=== PATIENT | female | born 1945 | race Hispanic/Latino ===

== ENCOUNTER 2018-06-26 06:06 | Inpatient (IN) | payer MEDICARE ==
[2018-06-26 06:31] VITALS: O2SAT 96
--- NOTE | 2018-06-26 06:32 | ED PDOC ---
Psych Transfer Clearance - Clearance Statement Clearance Statement: Reviewed vital signs, lab results and transfer papers. Patient clinically stable for psychiatric admission.
[2018-06-26] MEDS ORDERED: Alum-Mag Hydrox-Simethicone Susp (30 mL) PO PRN (07:57)
[2018-06-26] MEDS ORDERED: Bismuth Subsalicylate 262 mg/15 ml Sus (240 ml) PO PRN (07:57)
[2018-06-26] MEDS ORDERED: Magnesium Hydroxide Susp 30 ml UD PO PRN (07:57)
[2018-06-26 09:32] VITALS: BMI 24.8
[2018-06-26] MEDS ORDERED: Patient's Own Med (Omeprazole [Omeprazole] 40 MG) PO SCH (09:45)
--- NOTE | 2018-06-26 10:38 | PCM.BM ---
<Gretchen Camp - Last Filed: 06/26/18 10:35> Treatment Plan Problems - Problems identified on initial assessmt Suicidal Ideation Date Initiated: 06/26/18 Time Initiated: 10:36 Assessment reference: HP, NA Status: Active Hopelessness/Helplessness Date Initiated: 06/26/18 Time Initiated: 10:39 Assessment reference: HP, NA Status: Active Social Isolation Date Initiated: 06/26/18 Time Initiated: 10:40 Assessment reference: HP, NA Status: Active Problem 4 Date Initiated: 06/26/18 Time Initiated: 10:42 Assessment reference: HP, NA Status: Active Treatment assets and liabiliti Patient Assests: adapts well, cooperative, motivated Patient Liabilities: live alone, medical problems - Milieu Protocol Maintain good personal hygiene: daily Encourage regular showers, daily Remind patient to perform daily oral care, daily Assist patient to perform ADL's Conduct patient checks and document Observation sheet: Q15 minutes Maintain personal safety: every shift Educate patient to report safety concerns to staff, every shift Monitor environment for contraband/sharps Medication safety: Monitor for expected outcome, potential side effects: every shift, Assess barriers to learning: every shift, Assess readiness for medication education: every shift <Lyssa Granger - Last Filed: 06/27/18 12:00> - Diagnosis (1) Major depressive disorder Status: Acute Interventions: Medication management, Individual and group therapy, Psychoeducation 06/27/18 12:00 <Jessie Santos - Last Filed: 06/28/18 15:19> Family Contact Family contact: Patient agrees to contact, Family has been contacted by patient, Telephone contact initiated by staff Family contact name: Abel Nelson - son Family contacted how many times per week?: 1 Family contact comment: [phone] - Outside Agency [facility] Agency contact number: - Goals for Treatment Patient goals for treatment: Pt will overall improve mood. Pt will be free of suicidal ideation. Pt will develop strategies for thought distraction when ruminating about the past. Pt will manage physical healthcare conditions and cope with related stress. Discharge/Continuing Care - Education Needs Education Needs: Family Medication, Family Diagnosis/Disease Process, Family Coping Skills, Family Community resources, Family Activities of Daily Living, Family Nutrition, Family Health Practices/Safety, Family Personal Hygiene/Grooming, Patient Medication, Patient Diagnosis/Disease Process, Patient Coping Skills, Patient Community resources, Patient Activities of Daily Living, Patient Nutrition, Patient Health Practices/Safety, Patient Personal Hygiene/Grooming - Discharge Discharge Criteria: Tolerates medication w/o severe side effects, Free of Suicidal thoughts, Normal sleep pattern, Ability to care for self, Reduction of target symptoms Discharge to:: Home - Additional Comments 06/28/18 15:11 Pt seen and discussed in team meeting. Reason for hospitalization reviewed and discussed. Pt was a transfer from [facility]. Pt reported feeling worsened depression since 02/2018. Pt reported suicidal ideation prior to ED arrival. Pt reported that her plan was to overdose on medications that she has at home. Pt reported decline in physical ability, more so on her right shoulder secondary to the falls he sustained in 07/2017 and the surgery on 02/2018. Pt reported that she has been isolating herself. Pt reported feeling hopeless and helpless. Pt reported feeling "terrible. I'm tired, very depressed, and weak." Pt described her depression as a "heavy wet blanket." Pt reported that she feels as if she lost her identity. Pt stated 'I used to be chirpy and vibrant." Pt reported in the past she was always very well dressed, nails done, and hair done. Pt reported she has not been able to do any of that since the fall. Pt observed to have her nails well manicured. Pt's social and medical issues reviewed and discussed. Pt lives alone and her son resides in [place]. Pt's me dications reviewed. Pt's tx plan reviewed and discussed. Pt verbalized agreement. Assisted Living Facility vs. [facility] reviewed with pt and declined. Home [facility] Services reviewed and declined. Pt appears to be help rejecting at thsi time. Pt provided radio news writer with written consent to contact her son, Abel ([phone]). SW to continue to follow case. - Treatment Team Participation Discussed with Family/SO: No Was Patient/Family/SO present at Treatment Team Meeting: Yes
[2018-06-26] MEDS: Levothyroxine 88 MCG TAB PO SCH (11:43)
--- NOTE | 2018-06-26 12:28 | CP.PCM.CON ---
History of Present Illness - History of Present Illness History of Present Illness: 72 yo female with history of DM2 and HTN admitted to psyche unit because of worsening depression. Review of Systems - Review of Systems All systems: reviewed and no additional remarkable complaints except (aside from those mentioned above, 12 point system review were negative by me) Past Patient History - Tetanus Immunizations Tetanus Immunization: Unknown - Past Social History Smoking Status: Light Smoker < 10 Cigarettes Daily Chewing Tobacco Use: No Cigar Use: No Alcohol: None Drugs: Denies - CARDIAC Hx Hypertension: Yes - PULMONARY Hx Respiratory Disorders: No - NEUROLOGICAL Hx Neurological Disorder: No - HEENT Hx HEENT Problems: No - RENAL Hx Chronic Kidney Disease: No - ENDOCRINE/METABOLIC Hx Endocrine Disorders: Yes Hx Diabetes Mellitus Type 2: Yes Hx Hypothyroidism: Yes (10 years ago) - HEMATOLOGICAL/ONCOLOGICAL Hx Blood Disorders: No - INTEGUMENTARY Hx Dermatological Problems: No - MUSCULOSKELETAL/RHEUMATOLOGICAL Hx Arthritis: Yes Hx Fractures: Yes (Rt shoulder-03/02) - GASTROINTESTINAL Hx Gastrointestinal Disorders: No - GENITOURINARY/GYNECOLOGICAL Hx Genitourinary Disorders: No - PSYCHIATRIC Hx Depression: Yes Hx Emotional Abuse: No Hx Physical Abuse: No Hx Sexual Abuse: No Hx Substance Use: No - SURGICAL HISTORY Hx Surgeries: Yes Hx Musculoskeletal Surgery: Yes Hx Orthopedic Surgery: Yes (-bilateral knee surgery-2009) - ANESTHESIA Hx Anesthesia: Yes Meds Allergies/Adverse Reactions: Allergies Allergy/AdvReac Type Severity Reaction Status Date / Time No Known Allergies Allergy Verified 06/26/18 06:25 - Medications Medications: Current Medications Acetaminophen (Tylenol 325mg Tab) 650 mg PO Q4 PRN PRN Reason: Pain, moderate (4-7) Al Hydrox/Mg Hydrox/Simethicone (Maalox Plus 30 Ml) 30 ml PO Q4 PRN PRN Reason: Dyspepsia Atorvastatin Calcium (Lipitor) 20 mg PO HS [facility] Bismuth Subsalicylate (Pepto-Bismol) 524 mg PO Q4 PRN PRN Reason: Diarrhea Carvedilol (Coreg) 3.125 mg PO BID [facility] Enalapril Maleate (Vasotec) 5 mg PO DAILY [facility] Last Admin: 06/26/18 11:44 Dose: 5 mg Gabapentin (Neurontin) 400 mg PO TID [facility] Home Med (Ropinirole [Requip]) 1 mg PO HS [facility] Hydrochlorothiazide (Hydrodiuril) 25 mg PO DAILY [facility] Levothyroxine Sodium (Synthroid) 88 mcg PO 0630 [facility] Last Admin: 06/26/18 11:43 Dose: 88 mcg Lorazepam (Ativan) 0.5 mg PO HS PRN PRN Reason: Insomnia Stop: 07/10/18 07:58 Lorazepam (Ativan) 0.5 mg PO Q6 PRN PRN Reason: Anixety/Agitation Stop: 07/10/18 07:58 Magnesium Hydroxide (Milk Of Magnesia) 30 ml PO HS PRN PRN Reason: Constipation Metformin HCl (Glucophage) 500 mg PO BID [facility] Last Admin: 06/26/18 11:43 Dose: 500 mg Pantoprazole Sodium (Protonix Ec Tab) 40 mg PO DAILY [facility] Primidone (Mysoline) 50 mg PO DAILY [facility] Valsartan (Diovan) 160 mg PO DAILY [facility] Physical Exam - Constitutional Appears: No Acute Distress - Head Exam Head Exam: ATRAUMATIC - Eye Exam Eye Exam: absent: Scleral icterus - ENT Exam ENT Exam: Mucous Membranes Moist - Neck Exam Neck exam: Negative for: Meningismus - Respiratory Exam Respiratory Exam: absent: Rales, Rhonchi, Wheezes, Respiratory Distress - Cardiovascular Exam Cardiovascular Exam: REGULAR RHYTHM, +S1, +S2 - GI/Abdominal Exam GI & Abdominal Exam: Soft. absent: Tenderness - Rectal Exam Rectal Exam: Deferred - Extremities Exam Extremities exam: Negative for: pedal edema - Back Exam Back exam: NORMAL INSPECTION - Neurological Exam Neurological exam: Alert, Oriented x3 - Psychiatric Exam Psychiatric exam: Normal Affect - Skin Skin Exam: Dry, Intact Results - Vital Signs Recent Vital Signs: Last Vital Signs Temp 97.8 F 06/26/18 10:00 Pulse 82 06/26/18 10:00 Resp 19 06/26/18 10:00 BP 123/56 L 06/26/18 10:00 Pulse Ox 96 06/26/18 06:25 Assessment & Plan (1) Depression Status: Acute Comment: psyche is managing (2) DM2 (diabetes mellitus, type 2) Status: Acute Comment: CMP, HgA1C in am. Metformin 500mg PO BID (3) HTN (hypertension) Status: Acute Comment: BP stable. continue Amlodipine, Enalapril and HCTZ
--- NOTE | 2018-06-26 12:58 | PCM.PSYCH ---
Initial Psychiatric Evaluation - Initial Psychiatric Evaluation Type of Admission: Voluntary Legal Status: Capacity Chief Complaint (in patient's own words): Depression Patient's Reaction to Hospitalization: HPI: 72 yo female w/ h/o depression, presents w/ worsening depression w/ suicidal ideation to kill herself by overdosing on Seroquel. +Sleep/appetite disturbances. +Hopeless/helpless. +Self isolating and not leaving her home. No AH/VH/paranoia/delusions/HI. PPHx: Outpatient psychiatrist: Dr. Merida PMHx: HTN, Hypothyroidism, DM, HLD, R shoulder injury s/p fall ALL: NKDA FHx: Brother and maternal cousin- Depression SHx: Lives alone, smokes 6-7 cig/day (declined smoking cessation); denies drugs/etoh; 1 adult son in [place] Current Medications: Active Medications Generic Name Dose Route Start Last Admin Trade Name Freq PRN Reason Stop Dose Admin Acetaminophen 650 mg 06/26/18 07:57 Tylenol 325mg Tab PO Q4 PRN Pain, moderate (4-7) Al Hydrox/Mg Hydrox/Simethicone 30 ml 06/26/18 07:57 Maalox Plus 30 Ml PO Q4 PRN Dyspepsia Atorvastatin Calcium 20 mg 06/26/18 22:00 Lipitor PO HS RACHEL Bismuth Subsalicylate 524 mg 06/26/18 07:57 Pepto-Bismol PO Q4 PRN Diarrhea Carvedilol 3.125 mg 06/26/18 17:00 Coreg PO BID [facility] Enalapril Maleate 5 mg 06/26/18 09:30 06/26/18 11:44 Vasotec PO 5 mg DAILY [facility] Administration Gabapentin 400 mg 06/26/18 13:00 06/26/18 12:55 Neurontin PO 400 mg TID [facility] Administration Home Med 1 mg 06/26/18 22:00 Ropinirole [Requip] PO HS [facility] Hydrochlorothiazide 25 mg 06/27/18 09:00 Hydrodiuril PO DAILY [facility] Levothyroxine Sodium 88 mcg 06/26/18 09:30 06/26/18 11:43 Synthroid PO 88 mcg 0630 [facility] Administration Lorazepam 0.5 mg 06/26/18 07:57 Ativan PO 07/10/18 07:58 HS PRN Insomnia Lorazepam 0.5 mg 06/26/18 07:57 Ativan PO 07/10/18 07:58 Q6 PRN Anixety/Agitation Magnesium Hydroxide 30 ml 06/26/18 07:57 Milk Of Magnesia PO HS PRN Constipation Metformin HCl 500 mg 06/26/18 09:45 06/26/18 11:43 Glucophage PO 500 mg BID [facility] Administration Pantoprazole Sodium 40 mg 06/27/18 09:00 Protonix Ec Tab PO DAILY [facility] Primidone 50 mg 06/27/18 09:00 Mysoline PO DAILY [facility] Valsartan 160 mg 06/26/18 09:45 Diovan PO DAILY [facility] Past Psychiatric History - Past Psychiatric History Pertinent Medical Hx (Current Medical&Sleep Prob, Allergies): Allergies Allergy/AdvReac Type Severity Reaction Status Date / Time No Known Allergies Allergy Verified 06/26/18 06:25 Carvedilol [Coreg] 3.125 mg PO BID 06/26/18 Enalapril Maleate [Vasotec] 5 mg PO DAILY 06/26/18 Gabapentin [Neurontin] 400 mg PO Q8H 06/26/18 Levothyroxine [Synthroid] 88 mcg PO 0630 06/26/18 Omeprazole 40 mg PO DAILY 06/26/18 Primidone [Mysoline] 50 mg PO DAILY 06/26/18 Quetiapine Fumarate [Seroquel] 400 mg PO HS 06/26/18 Simvastatin [Zocor] 40 mg PO HS 06/26/18 Valsartan [Diovan] 160 mg PO DAILY 06/26/18 Zolpidem Tartrate [Ambien Cr] 12.5 mg PO HS 06/26/18 hydroCHLOROthiazide [Hydrodiuril] 25 mg PO DAILY 06/26/18 metFORMIN [glucOPHAGE] 500 mg PO BID 06/26/18 rOPINIRole [Requip] 1 mg PO HS 06/26/18 Review of Systems - Psychiatric Psychiatric: As Per HPI, Abnormal Sleep Pattern, Anxiety, Change in Appetite, Depression, Difficulty Concentrating, Hopelessness, Irritability, Suicidal Ideation Mental Status Examination - Personal Presentation Personal Presentation: Looks stated age - Affect Affect: Constricted, Depressed - Motor Activity Motor Activity: Calm - Reliability in Providing Information Reliability in Providing Information: Fair - Speech Speech: Coherent - Mood Mood: Depressed - Formal Thought Process Formal Thought Process: No Impairment Additional comments: NO AH/VH/paranoia/delusions - Obsessions/Compulsions Obsessions: No Compulsions: No - Cognitive Functions Orientation: Person, Place, Situation, Time Sensorium: Alert Attention/Concentration: Attentive Judgement: Intact, as evidence by: Insight regarding need for hospitalization Memory: Recent intact, as evidence by: Ability to recall events of the day, Remote intact, as evidenced by: Abilit to recall sig. life events, Remote intact, as evidenced by: Ability to recall historical events - Risk Risk: Suicidal - Strength & Assets Inventory Strength & Assets Inventory: Cooperative - Limitations Limitations: Living alone DSM 5 DX - DSM 5 DSM 5 Diagnosis: Major Depressive Disorder, Severe, Recurrent - Recommended/Plan of Treatment Treatment Recommendations and Plan of Treatment: Major Depressive Disorder, Severe, Recurrent -Admit to psychiatry unit -Individual and group therapy -Increase Effexor -Continue Seroquel -Medicine consult -PT -Psychoeducation -Disposition planning Projected ELOS: 6-14 days Discharge Plan and Discharge Criteria: Discharge when patient is psychiatrically stable - Smoking Cessation Smoking Cessation Initiated: No Reason for not providing: Patient declined
[2018-06-26] MEDS ORDERED: Pneumococcal 23-Valent Vaccine IM ONE (13:53)
[2018-06-26] MEDS ORDERED: Influenza Vaccine (5 YR UP)/PF 60 MCG/0.5 ML SYR IM ONE (13:56)
[2018-06-26] MEDS: Venlafaxine 75 mg ER Cap PO SCH (15:12)
[2018-06-26 18:33] LABS: SQUAMOUS EPITHIAL 3 /hpf (0-5); URINE BILIRUBIN NEGATIVE (NEGATIVE); URINE BLOOD NEGATIVE (NEGATIVE); URINE CLARITY CLEAR (Clear); URINE COLOR YELLOW (YELLOW); URINE GLUCOSE (UA) NEG (NEGATIVE); URINE HYALINE CAST 0-2 /hpf (0-2); URINE LEUKOCYTE ESTERASE NEG Leu/uL (Negative); URINE PROTEIN NEGATIVE (NEGATIVE); URINE UROBILINOGEN 0.2-1.0 mg/dL (0.2-1.0)
[2018-06-26] MEDS ORDERED: Patient's Own Med (Ropinirole [Requip] 1 MG) PO SCH (22:00)
[2018-06-26] MEDS ORDERED: Patient's Own Med (Simvastatin [Zocor] 40 MG) PO SCH (22:00)
[2018-06-27] MEDS: Levothyroxine 88 MCG TAB PO SCH (06:11)
[2018-06-27 08:43] LABS: HEMOGLOBIN 11.2 g/dL (12.0-16.0); MEAN CORPUSCULAR HEMOGLOBIN 32.1 pg (27.0-31.0); MEAN CORPUSCULAR HGB CONC 33.8 g/dL (33.0-37.0); RBC 3.48 Mil/uL (3.80-5.20); RED CELL DISTRIBUTION WIDTH 14.1 % (11.5-14.5); WHITE BLOOD COUNT 8.3 K/uL (4.8-10.8)
[2018-06-27 08:51] LABS: ALB/GLOB RATIO 1.2 (1.0-2.1); ALBUMIN 3.4 g/dL (3.5-5.0); ALT/SGPT 18 U/L (9-52); AST/SGOT 18 U/L (14-36); BLOOD UREA NITROGEN 24 mg/dl (7-17); CALCIUM 9.2 mg/dL (8.4-10.2); GFR NON-AFRICAN AMERICAN > 60; HDL CHOLESTEROL 57 MG/DL (30-70)
[2018-06-27 08:55] LABS: LDL CHOLESTEROL 63 mg/dL (0-129)
[2018-06-27 09:07] LABS: T4 3.58 ug/dl (5.5-11.0)
[2018-06-27 09:24] LABS: FERRITIN 44.2 ng/Ml (11.1-264.0)
[2018-06-27] MEDS: Venlafaxine 75 mg ER Cap PO SCH (09:26)
[2018-06-27] MEDS: Pantoprazole 40 mg EC Tab PO SCH (09:26)
--- NOTE | 2018-06-27 11:37 | PCM.PYCHPN ---
Psychiatric Progress Note - Psychiatric Progress Note Patient seen today, length of contact: Pt evaluated, case discussed w/ team, chart reviewed Patient Chief Complaint: Depression Problems Identified/Issues Discussed: Patient continues to report severe depression w/ sleep and appetite disturbances and feelings of hopelessness. She is able to contract for safety at this time and denies acute SI. Medication Change: No Medical Record Reviewed: Yes Consults ordered or reviewed: Medicine consult Mental Status Examination - Cognitive Function Orientation: Person, Place, Situation, Time Memory: Intact - Mood Mood: Depressed - Affect Affect: Constricted, Depressed - Speech Speech: Appropriate - Formal Thought Process Formal Thought Process: No Impairment Psychotic Thoughts and Behaviors: No AH/VH/paranoia/delusions - Suicidal Ideation Suicidal Ideation: No - Homicidal Ideation Homicidal Ideation: No Goal/Treatment Plan - Goal/Treatment Plan Need for Continued Stay: Remain at risks for inpatient hospitalization, Severe depression anxiety, Discharge may exacerbated symptoms Progress Toward Problem(s) and Goals/Treatment Plan: Major Depressive Disorder, Severe, Recurrent -Individual and group therapy -Continue Effexor -Continue Seroquel -Medicine consult -PT -Psychoeducation -Disposition planning
[2018-06-28] MEDS: Levothyroxine 88 MCG TAB PO SCH (08:42)
[2018-06-28] MEDS: Venlafaxine 75 mg ER Cap PO SCH (08:42)
[2018-06-28] MEDS: Pantoprazole 40 mg EC Tab PO SCH (08:44)
--- NOTE | 2018-06-28 11:22 | PCM.PYCHPN ---
Psychiatric Progress Note - Psychiatric Progress Note Patient seen today, length of contact: Pt evaluated, case discussed w/ team, chart reviewed Patient Chief Complaint: Depression Problems Identified/Issues Discussed: Patient continues to report severe depression w/ sleep and appetite disturbances and feelings of hopelessness. She denies acute SI. We discussed continued titration of Seroquel. Medication Change: Yes (Increase Seroquel) Medical Record Reviewed: Yes Consults ordered or reviewed: Medicine consult Mental Status Examination - Cognitive Function Orientation: Person, Place, Situation, Time Memory: Intact Association: WNL Fund of Knowledge: [facility] Decription of patient's judgement and insights: Improving I/J - Mood Mood: Depressed - Affect Affect: Constricted, Depressed - Speech Speech: Appropriate - Formal Thought Process Formal Thought Process: No Impairment Psychotic Thoughts and Behaviors: No AH/VH/paranoia/delusions - Suicidal Ideation Suicidal Ideation: No - Homicidal Ideation Homicidal Ideation: No Goal/Treatment Plan - Goal/Treatment Plan Need for Continued Stay: Remain at risks for inpatient hospitalization, Severe depression anxiety, Discharge may exacerbated symptoms Progress Toward Problem(s) and Goals/Treatment Plan: Major Depressive Disorder, Severe, Recurrent -Individual and group therapy -Continue Effexor -Increase Seroquel -Medicine consult -PT -Psychoeducation -Disposition planning
[2018-06-28 13:55] LABS: FOLATE 7.5 ng/mL
[2018-06-28] MEDS ORDERED: DiphenhydrAMINE 12.5 mg/5 ml LIQ UD (5 ml) PO PRN (18:40)
[2018-06-29] MEDS: Levothyroxine 88 MCG TAB PO SCH (05:47)
[2018-06-29] MEDS: Venlafaxine 75 mg ER Cap PO SCH (08:32)
[2018-06-29] MEDS: Pantoprazole 40 mg EC Tab PO SCH (08:33)
--- NOTE | 2018-06-29 13:26 | PCM.PYCHPN ---
Psychiatric Progress Note - Psychiatric Progress Note Patient seen today, length of contact: Pt evaluated, case discussed w/ team, chart reviewed Patient Chief Complaint: Depression Problems Identified/Issues Discussed: Patient continues to report severe depression w/ sleep and appetite disturbances and feelings of hopelessness. She denies acute SI. She reports itching and hives today, was seen and evaluated by hospitalist client support consultant, Dr. Giron, Atarax was ordered. No clear cause of hives; no new medications recently started. Medication Change: No Medical Record Reviewed: Yes Consults ordered or reviewed: Medicine consult Mental Status Examination - Cognitive Function Orientation: Person, Place, Situation, Time Memory: Intact Association: WNL Fund of Knowledge: [facility] Decription of patient's judgement and insights: Improving I/J - Mood Mood: Depressed - Affect Affect: Constricted, Depressed - Speech Speech: Appropriate - Formal Thought Process Formal Thought Process: No Impairment Psychotic Thoughts and Behaviors: No AH/VH/paranoia/delusions - Suicidal Ideation Suicidal Ideation: No - Homicidal Ideation Homicidal Ideation: No Goal/Treatment Plan - Goal/Treatment Plan Need for Continued Stay: Remain at risks for inpatient hospitalization, Severe depression anxiety, Discharge may exacerbated symptoms Progress Toward Problem(s) and Goals/Treatment Plan: Major Depressive Disorder, Severe, Recurrent -Individual and group therapy -Continue Effexor -Continue Seroquel -Medicine consult -PT -Psychoeducation -Disposition planning
[2018-06-30] MEDS: Levothyroxine 88 MCG TAB PO SCH (06:13)
[2018-06-30] MEDS: Pantoprazole 40 mg EC Tab PO SCH (08:25)
[2018-06-30] MEDS: Venlafaxine 75 mg ER Cap PO SCH (08:28)
--- NOTE | 2018-06-30 11:09 | PCM.PYCHPN ---
Psychiatric Progress Note - Psychiatric Progress Note Patient seen today, length of contact: Pt evaluated, case discussed w/ team, chart reviewed Patient Chief Complaint: Depression Problems Identified/Issues Discussed: No new events overnight. Patient continues to report severe depression w/ sleep/appetite disturbances and feelings of hopelessness. She denies acute SI. She is on Atarax for treatment of hives as recommended by hospitalist consult, Dr. Giron. No clear cause of hives; no new medications recently started. Medication Change: No Medical Record Reviewed: Yes Consults ordered or reviewed: Medicine consult Mental Status Examination - Cognitive Function Orientation: Person, Place, Situation, Time Memory: Intact Association: WNL Fund of Knowledge: [facility] Decription of patient's judgement and insights: Improving I/J - Mood Mood: Depressed - Affect Affect: Constricted, Depressed - Speech Speech: Appropriate - Formal Thought Process Formal Thought Process: No Impairment Psychotic Thoughts and Behaviors: No AH/VH/paranoia/delusions - Suicidal Ideation Suicidal Ideation: No - Homicidal Ideation Homicidal Ideation: No Goal/Treatment Plan - Goal/Treatment Plan Need for Continued Stay: Remain at risks for inpatient hospitalization, Severe depression anxiety, Discharge may exacerbated symptoms Progress Toward Problem(s) and Goals/Treatment Plan: Major Depressive Disorder, Severe, Recurrent -Individual and group therapy -Continue Effexor -Continue Seroquel -Medicine consult -PT -Psychoeducation -Disposition planning
[2018-07-01] MEDS: Levothyroxine 88 MCG TAB PO SCH (06:01)
[2018-07-01] MEDS: Venlafaxine 75 mg ER Cap PO SCH (08:25)
[2018-07-01] MEDS: Pantoprazole 40 mg EC Tab PO SCH (08:28)
--- NOTE | 2018-07-01 10:35 | PCM.PYCHPN ---
Psychiatric Progress Note - Psychiatric Progress Note Patient seen today, length of contact: Pt evaluated, case discussed w/ team, chart reviewed Patient Chief Complaint: Depression Problems Identified/Issues Discussed: Patient continues to report severe depression w/ sleep/appetite disturbances and feelings of hopelessness. She denies acute SI. She is on Atarax for treatment of hives as recommended by hospitalist consult, Dr. Giron. No clear cause of hives; no new medications recently started. Medication Change: No Medical Record Reviewed: Yes Consults ordered or reviewed: Medicine consult Mental Status Examination - Cognitive Function Orientation: Person, Place, Situation, Time Memory: Intact Association: WNL Fund of Knowledge: [facility] Decription of patient's judgement and insights: Improving I/J - Mood Mood: Depressed - Affect Affect: Constricted, Depressed - Speech Speech: Appropriate - Formal Thought Process Formal Thought Process: No Impairment Psychotic Thoughts and Behaviors: No AH/VH/paranoia/delusions - Suicidal Ideation Suicidal Ideation: No - Homicidal Ideation Homicidal Ideation: No Goal/Treatment Plan - Goal/Treatment Plan Need for Continued Stay: Remain at risks for inpatient hospitalization, Severe depression anxiety, Discharge may exacerbated symptoms Progress Toward Problem(s) and Goals/Treatment Plan: Major Depressive Disorder, Severe, Recurrent -Individual and group therapy -Continue Effexor -Continue Seroquel -Medicine consult -PT -Psychoeducation -Disposition planning
--- NOTE | 2018-07-01 12:34 | CP.PCM.PN ---
Subjective - Date & Time of Evaluation Date of Evaluation: 07/01/18 Time of Evaluation: 12:00 - Subjective Subjective: Patient seen and examined. Rash had not cleared but patient claimed she does not feel itchy unless she scratched them. Objective - Vital Signs/Intake and Output Vital Signs (last 24 hours): Temp Pulse Resp BP Pulse Ox 97.9 F 83 18 121/65 96 07/01/18 06:00 07/01/18 08:24 07/01/18 06:00 07/01/18 08:24 06/26/18 06:25 - Medications Medications: Current Medications Acetaminophen (Tylenol 325mg Tab) 650 mg PO Q4 PRN PRN Reason: Pain, moderate (4-7) Last Admin: 06/27/18 14:48 Dose: 650 mg Al Hydrox/Mg Hydrox/Simethicone (Maalox Plus 30 Ml) 30 ml PO Q4 PRN PRN Reason: Dyspepsia Atorvastatin Calcium (Lipitor) 20 mg PO HS [facility] Last Admin: 06/30/18 21:04 Dose: 20 mg Bismuth Subsalicylate (Pepto-Bismol) 524 mg PO Q4 PRN PRN Reason: Diarrhea Carvedilol (Coreg) 3.125 mg PO BID [facility] Last Admin: 07/01/18 08:23 Dose: 3.125 mg Enalapril Maleate (Vasotec) 5 mg PO DAILY [facility] Last Admin: 07/01/18 08:31 Dose: 5 mg Famotidine (Pepcid) 20 mg PO BID [facility] Gabapentin (Neurontin) 400 mg PO TID [facility] Last Admin: 07/01/18 08:28 Dose: 400 mg Hydrochlorothiazide (Hydrodiuril) 25 mg PO DAILY [facility] Last Admin: 07/01/18 08:29 Dose: 25 mg Lactic Acid (Lac-Hydrin 12% Lotion (225 G)) 1 applic TOP TID [facility] Last Admin: 07/01/18 08:27 Dose: 1 applic Levothyroxine Sodium (Synthroid) 88 mcg PO 0630 [facility] Last Admin: 07/01/18 06:01 Dose: 88 mcg Loratadine (Claritin) 10 mg PO DAILY [facility] Lorazepam (Ativan) 0.5 mg PO HS PRN PRN Reason: Insomnia Stop: 07/10/18 07:58 Lorazepam (Ativan) 0.5 mg PO Q6 PRN PRN Reason: Anixety/Agitation Stop: 07/10/18 07:58 Last Admin: 06/29/18 13:04 Dose: 0.5 mg Losartan Potassium (Cozaar) 100 mg PO DAILY [facility] Last Admin: 07/01/18 08:24 Dose: 100 mg Magnesium Hydroxide (Milk Of Magnesia) 30 ml PO HS PRN PRN Reason: Constipation Metformin HCl (Glucophage) 500 mg PO BID [facility] Last Admin: 07/01/18 08:25 Dose: 500 mg Pantoprazole Sodium (Protonix Ec Tab) 40 mg PO DAILY [facility] Last Admin: 07/01/18 08:28 Dose: 40 mg Primidone (Mysoline) 50 mg PO DAILY [facility] Last Admin: 07/01/18 08:27 Dose: 50 mg Quetiapine Fumarate (Seroquel) 400 mg PO HS [facility] Last Admin: 06/30/18 21:04 Dose: 400 mg Quetiapine Fumarate (Seroquel) 100 mg PO DAILY [facility] Venlafaxine HCl (Effexor Xr) 225 mg PO DAILY [facility] Last Admin: 07/01/18 08:25 Dose: 225 mg Zolpidem Tartrate (Ambien) 5 mg PO HS PRN PRN Reason: insomnia Last Admin: 06/30/18 21:06 Dose: 5 mg - Labs Labs: 06/27/18 07:10 06/27/18 07:10 - Constitutional Appears: No Acute Distress - ENT Exam ENT Exam: Mucous Membranes Moist - Respiratory Exam Respiratory Exam: absent: Rales, Rhonchi, Wheezes, Respiratory Distress - Cardiovascular Exam Cardiovascular Exam: REGULAR RHYTHM, +S1, +S2 - GI/Abdominal Exam GI & Abdominal Exam: Soft. absent: Tenderness - Skin Skin Exam: Rash (papular rashes all over limbs and torso) Assessment and Plan (1) Depression Status: Acute (2) DM2 (diabetes mellitus, type 2) Status: Acute (3) HTN (hypertension) Status: Acute (4) Urticaria Status: Acute - Assessment and Plan (Free Text) Assessment: etiology unknown will DC Atarax and Benadryl seems they have shown not to work and also sedating will initiate Pepcid 20mg PO BID and Loratidine 10mg PO daily
[2018-07-02] MEDS: Levothyroxine 88 MCG TAB PO SCH (06:06)
[2018-07-02] MEDS: Venlafaxine 75 mg ER Cap PO SCH (08:23)
[2018-07-02] MEDS: Pantoprazole 40 mg EC Tab PO SCH (08:26)
--- NOTE | 2018-07-02 12:42 | PCM.PYCHPN ---
Psychiatric Progress Note - Psychiatric Progress Note Patient seen today, length of contact: Pt evaluated, case discussed w/ team, chart reviewed Patient Chief Complaint: Depression Problems Identified/Issues Discussed: Patient continues to report feeling depressed w/ sleep disturbances and feelings of hopelessness. She denies acute SI. We discussed continued titration of Seroquel as she is unwilling to otherwise change her medications at this time. Medication Change: Yes (Increase Seroquel) Medical Record Reviewed: Yes Consults ordered or reviewed: Medicine consult Mental Status Examination - Cognitive Function Orientation: Person, Place, Situation, Time Memory: Intact Attention: WNL Concentration: WNL Association: WNL Fund of Knowledge: [facility] Decription of patient's judgement and insights: Improving I/J - Mood Mood: Depressed - Affect Affect: Constricted, Depressed - Speech Speech: Appropriate - Formal Thought Process Formal Thought Process: No Impairment Psychotic Thoughts and Behaviors: No AH/VH/paranoia/delusions - Suicidal Ideation Suicidal Ideation: No - Homicidal Ideation Homicidal Ideation: No Goal/Treatment Plan - Goal/Treatment Plan Need for Continued Stay: Remain at risks for inpatient hospitalization, Severe depression anxiety, Discharge may exacerbated symptoms Progress Toward Problem(s) and Goals/Treatment Plan: Major Depressive Disorder, Severe, Recurrent -Individual and group therapy -Continue Effexor -Increase Seroquel -Medicine consult -PT -Psychoeducation -Disposition planning
[2018-07-03] MEDS: Levothyroxine 88 MCG TAB PO SCH (05:42)
[2018-07-03] MEDS: Pantoprazole 40 mg EC Tab PO SCH (09:06)
[2018-07-03] MEDS: Venlafaxine 75 mg ER Cap PO SCH (09:08)
--- NOTE | 2018-07-03 16:20 | PCM.PYCHPN ---
Psychiatric Progress Note - Psychiatric Progress Note Patient seen today, length of contact: Pt evaluated, case discussed w/ team, chart reviewed Patient Chief Complaint: pt has remained very depressed and hopeless with flat affect and still with limited insight .pt is being followed by medicine for urticaria.. Medication Change: Yes (Increase Seroquel) Medical Record Reviewed: Yes Mental Status Examination - Cognitive Function Orientation: Person, Place, Situation, Time Memory: Intact Attention: WNL Concentration: WNL Association: WNL Fund of Knowledge: WNL - Mood Mood: Depressed - Affect Affect: Constricted, Depressed - Speech Speech: Appropriate - Formal Thought Process Formal Thought Process: No Impairment - Suicidal Ideation Suicidal Ideation: No - Homicidal Ideation Homicidal Ideation: No Goal/Treatment Plan - Goal/Treatment Plan Need for Continued Stay: Remain at risks for inpatient hospitalization, Severe depression anxiety, Discharge may exacerbated symptoms Progress Toward Problem(s) and Goals/Treatment Plan: will continue seroquel and effexor and titrate if needed and pt sleeps better now Disposition as per dr garay. medical follow up .
[2018-07-04] MEDS: Levothyroxine 88 MCG TAB PO SCH (05:48)
[2018-07-04] MEDS: Venlafaxine 75 mg ER Cap PO SCH (09:57)
[2018-07-04] MEDS: Pantoprazole 40 mg EC Tab PO SCH (09:58)
--- NOTE | 2018-07-04 13:01 | PCM.PYCHPN ---
Psychiatric Progress Note - Psychiatric Progress Note Patient seen today, length of contact: Pt evaluated, case discussed w/ team, chart reviewed Patient Chief Complaint: pt has remained withdrawn with poor selfesteem and negative thoughts at times.pt very depressed and hopeless with flat affect and still with limited insight .pt is being followed by medicine for urticaria.. Medication Change: Yes (Increase Seroquel) Medical Record Reviewed: Yes Mental Status Examination - Cognitive Function Orientation: Person, Place, Situation, Time Memory: Intact Attention: WNL Concentration: WNL Association: WNL Fund of Knowledge: WNL - Mood Mood: Depressed - Affect Affect: Constricted, Depressed - Speech Speech: Appropriate - Formal Thought Process Formal Thought Process: No Impairment - Suicidal Ideation Suicidal Ideation: No - Homicidal Ideation Homicidal Ideation: No Goal/Treatment Plan - Goal/Treatment Plan Need for Continued Stay: Remain at risks for inpatient hospitalization, Severe depression anxiety, Discharge may exacerbated symptoms Progress Toward Problem(s) and Goals/Treatment Plan: will continue seroquel and effexor and titrate if needed and pt sleeps better now Disposition as per dr garay. medical follow up .
[2018-07-05] MEDS: Levothyroxine 88 MCG TAB PO SCH (05:54)
--- NOTE | 2018-07-05 07:59 | PCM.PYCHPN ---
Psychiatric Progress Note - Psychiatric Progress Note Patient seen today, length of contact: Pt evaluated, case discussed w/ team, chart reviewed Patient Chief Complaint: Depression Problems Identified/Issues Discussed: Patient reports that her mood is improving. She is more hopeful and engaged in the community. No AH/VH/SI/HI/paranoia/delusions. No adverse effects to medications reported. Medication Change: No Medical Record Reviewed: Yes Consults ordered or reviewed: Medicine consult Mental Status Examination - Cognitive Function Orientation: Person, Place, Situation, Time Memory: Intact Attention: WNL Concentration: WNL Association: WNL Fund of Knowledge: [facility] Decription of patient's judgement and insights: Good I/J - Mood Mood: Depressed - Affect Affect: Constricted - Speech Speech: Appropriate - Formal Thought Process Formal Thought Process: No Impairment Psychotic Thoughts and Behaviors: No AH/VH/paranoia/delusions - Suicidal Ideation Suicidal Ideation: No - Homicidal Ideation Homicidal Ideation: No Goal/Treatment Plan - Goal/Treatment Plan Need for Continued Stay: Severe depression anxiety, Discharge may exacerbated symptoms Progress Toward Problem(s) and Goals/Treatment Plan: Major Depressive Disorder, Severe, Recurrent -Individual and group therapy -Continue Effexor -Continue Seroquel -Medicine consult -PT -Psychoeducation -Disposition planning- patient will likely be discharge tomorrow as she is improving clinically
[2018-07-05] MEDS: Venlafaxine 75 mg ER Cap PO SCH (08:37)
[2018-07-05] MEDS: Pantoprazole 40 mg EC Tab PO SCH (08:38)
[2018-07-06] MEDS: Levothyroxine 88 MCG TAB PO SCH (05:49)
[2018-07-06 05:54] VITALS: BP 107/62; PULSE 82; RESP 19; TEMP 97.7
[2018-07-06] MEDS: Venlafaxine 75 mg ER Cap PO SCH (08:21)
[2018-07-06] MEDS: Pantoprazole 40 mg EC Tab PO SCH (08:24)
--- NOTE | 2018-07-06 08:39 | PCM.PYCHDC ---
Mental Status Examination - Mental Status Examination Orientation: Person, Place, Situation, Time Memory: Intact Mood: Neutral Affect: Broad Speech: Appropriate Attention: WNL Concentration: WNL Association: WNL Fund of Knowledge: WNL Formal Thought Process: No Impairment Description of patient's judgement and insight: Good I/J Psychotic Thoughts and Behaviors: No AH/VH/paranoia/delusions Suicidal Ideation: No Current Homicidal Ideation?: No Discharge Summary - Discharge Note Reason for Hospitalization: HPI: 72 yo female w/ h/o depression, presents w/ worsening depression w/ suicidal ideation to kill herself by overdosing on Seroquel. +Sleep/appetite disturbances. +Hopeless/helpless. +Self isolating and not leaving her home. No AH/VH/paranoia/delusions/HI. PPHx: Outpatient psychiatrist: Dr. Merida PMHx: HTN, Hypothyroidism, DM, HLD, R shoulder injury s/p fall ALL: NKDA FHx: Brother and maternal cousin- Depression SHx: Lives alone, smokes 6-7 cig/day (declined smoking cessation); denies drugs/etoh; 1 adult son in [place] Laboratory Data: Abnormal Lab Results 07/05/18 07/05/18 05:52 15:35 POC Glucose (mg/dL) 108 159 H Consultations:: List each consultation separately and include: 1. Reason for request. 2. Findings. 3. Follow-up Consultations: Medicine consult Summary of Hospital Course include:: 1. Description of specific treatment plan utilized for patients during their course of treatmen. 2. Summarize the time- course for resolution of acute symptoms and/or regressed behaviors. 3. Describe issues identified and worked on during hospitalization. 4. Describe medication utilized. 5. Describe medical problems identified and treated. 6. Reassessment of suicide risk Summary of Hospital Course: Patient was admitted to the psychiatry unit. Individual and group therapy were provided. Patient was stabilized on increased doses of Effexor and Seroquel. She was not agreeable to changing the medications currently prescribed by her psychiatrist. Ambien was tapered from 12.5 to 5 mg PO HS PRN Insomnia. She reports improvement in mood. Psychoeducation provided on the importance of nursing home therapy and coping with her current physical limitations. She is currently psychiatrically stable for discharged. NO AH/VH/SI/HI/paranoia/delusions. She reports improvement in sleep and appetite. - Diagnosis (1) Major depressive disorder Current Visit: Yes Status: Acute - Final Diagnosis (DSM 5) Condition upon Discharge: STABLE DSM 5: Major Depressive Disorder Disposition: HOME/ ROUTINE Follow-up Treatment Plan: Major Depressive Disorder, Severe, Recurrent -Individual and group therapy -Continue Effexor 225 mg PO Daily -Continue Seroquel 100 mg PO AM/ 400 mg PO HS -Ambien reduced from 12.5 to 5 mg PO HS PRN Insomnia -Medicine consult -PT -Psychoeducation -Disposition planning- patient is psychiatrically stable for discharge at this time and will be discharged to home Prescriptions/Medication Reconciliation: Carvedilol [Coreg] 3.125 mg PO BID #60 tab Loratadine [Claritin] 10 mg PO DAILY #30 tab Primidone [Mysoline] 50 mg PO DAILY #30 tablet QUEtiapine [Seroquel] 100 mg PO DAILY #30 tab Quetiapine Fumarate [Seroquel] 400 mg PO HS #30 tablet Venlafaxine [Effexor XR] 225 mg PO DAILY #90 cer Zolpidem [Ambien] 5 mg PO HS PRN #30 tab PRN Reason: insomnia - Smoking Cessation Smoking Cessation Medication prescribed: No Reason for not providing: Not indicated - Antipsychotic Medications Pt discharged on 2 or more routine antipsychotic medications: No
--- NOTE | 2018-07-06 13:01 | PCM.BM ---
Treatment Plan Problems - Problems identified on initial assessmt Problem 4 Date Initiated: 06/26/18 Time Initiated: 10:42 Assessment reference: HP, NA Status: Active Suicidal Ideation Date Initiated: 06/26/18 Time Initiated: 10:36 Assessment reference: HP, NA Status: Active Hopelessness/Helplessness Date Initiated: 06/26/18 Time Initiated: 10:39 Assessment reference: HP, NA Status: Active Social Isolation Date Initiated: 06/26/18 Time Initiated: 10:40 Assessment reference: HP, NA Status: Active Treatment assets and liabiliti Patient Assests: adapts well, cooperative, motivated Patient Liabilities: live alone, medical problems - Milieu Protocol Maintain good personal hygiene: daily Encourage regular showers, daily Remind patient to perform daily oral care, daily Assist patient to perform ADL's Conduct patient checks and document Observation sheet: Q15 minutes Maintain personal safety: every shift Educate patient to report safety concerns to staff, every shift Monitor environment for contraband/sharps Medication safety: Monitor for expected outcome, potential side effects: every shift, Assess barriers to learning: every shift, Assess readiness for medication education: every shift Milieu Narrative: Major Depressive Disorder, Severe, Recurrent -Individual and group therapy -Continue Effexor 225 mg PO Daily -Continue Seroquel 100 mg PO AM/ 400 mg PO HS -Ambien reduced from 12.5 to 5 mg PO HS PRN Insomnia -Medicine consult -PT -Psychoeducation -Disposition planning- patient is psychiatrically stable for discharge at this time and will be discharged to home Family Contact Family involvement: Family/SO is involved Family contact: Patient agrees to contact, Family has been contacted by patient, Telephone contact initiated by staff Family contact name: Abel Nelson - son Family contacted how many times per week?: 1 - Outside Agency Dr. Tez Merida MD Care involent: Information-sharing Agency contact number: - Goals for Treatment Patient goals for treatment: Pt will overall improve mood. Pt will be free of suicidal ideation. Pt will develop strategies for thought distraction when ruminating about the past. Pt will manage physical healthcare conditions and cope with related stress. Discharge/Continuing Care - Education Needs Education Needs: Family Medication, Family Diagnosis/Disease Process, Family Coping Skills, Family Community resources, Family Activities of Daily Living, Family Nutrition, Family Health Practices/Safety, Family Personal Hygiene/Grooming, Patient Medication, Patient Diagnosis/Disease Process, Patient Coping Skills, Patient Community resources, Patient Activities of Daily Living, Patient Nutrition, Patient Health Practices/Safety, Patient Personal Hygiene/Grooming - Discharge Discharge Criteria: Tolerates medication w/o severe side effects, Free of Suicidal thoughts, Normal sleep pattern, Ability to care for self, Reduction of target symptoms Discharge to:: Home - Additional Comments 06/28/18 15:11 Pt seen and discussed in team meeting. Reason for hospitalization reviewed and discussed. Pt was a transfer from [facility] Pt reported feeling worsened depression since 02/2018. Pt reported suicidal ideation prior to ED arrival. Pt reported that her plan was to overdose on medications that she has at home. Pt reported decline in physical ability, more so on her right shoulder secondary to the falls he sustained in 07/2017 and the surgery on 02/2018. Pt reported that she has been isolating herself. Pt reported feeling hopeless and helpless. Pt reported feeling "terrible. I'm tired, very depressed, and weak." Pt described her depression as a "heavy wet blanket." Pt reported that she feels as if she lost her identity. Pt stated 'I used to be chirpy and vibrant." Pt reported in the past she was always very well dressed, nails done, and hair done. Pt reported she has not been able to do any of that since the fall. Pt observed to have her nails well manicured. Pt's social and medical issues reviewed and discussed. Pt lives alone and her son resides in [place]. Pt's medications reviewed. Pt's tx plan reviewed and discussed. Pt verbalized agreement. Assisted Living Facility vs. Public Services Librarian Care reviewed with pt and declined. Home Health Aide Services reviewed and declined. Pt appears to be help rejecting at si time. Pt provided database report writer with written consent to contact her son, Abel ([phone]). SW to continue to follow case. - Treatment Team Participation Patient/Family/SO Statement: Major Depressive Disorder, Severe, Recurrent -Individual and group therapy -Continue Effexor 225 mg PO Daily -Continue Seroquel 100 mg PO AM/ 400 mg PO HS -Ambien reduced from 12.5 to 5 mg PO HS PRN Insomnia -Medicine consult -PT -Psychoeducation -Disposition planning- patient is psychiatrically stable for discharge at this time and will be discharged to home Discussed with Family/SO: No Was Patient/Family/SO present at Treatment Team Meeting: Yes Treatment Plan Review Patient participation: Yes Family/SO/Caregiver participation: No Additional Comments: Pt seen and discussed in team meeting. Pt's progress and bx on the unit reviewed and discussed. Pt reported improved mood. Pt denied feeling depressed and anxious at time of team meeting. Pt denied SI and HI. Pt's sleep pattern improved. Pt's appetite improved. Pt observed to be socializing with peer son the unit. Pt scheduled for discharge this afternoon and returning home. Pt's RX reviewed. Pt informed of after care appointment with Dr. Tamia MD for 07/20/2018 at 12:30PM. Pt verbalized agreement. Pt informed that she will be provided with a taxi voucher for transportation form [facility] to home address of [address] [place] [address]. Pt verbalized agreement. - Problem Problem 4 Time Initiated: 10:42 Suicidal Ideation Date Initiated: 06/26/18 Time Initiated: 10:36 Progress toward outcomes: resolved (Pt denied SI/HI.) Hopelessness/Helplessness Date Initiated: 06/26/18 Time Initiated: 10:39 Progress toward outcomes: improved (Pt reported feeling less hopeless/helpless. Pt reported that she believes that she will need assistance at home upon discharge and will look into home health aide services.) Social Isolation Date Initiated: 06/26/18 Time Initiated: 10:40 Progress toward outcomes: improved (Pt was observed to be socializing with peers on the unit. Pt was less isolate and withdrawn on the unit.) - Discharge / Continuing Care Discharge to:: Home Behavioral Health Services: Outpatient therapy, Other (Medication Management) Health Needs: Follow up care/test, Doctor appointments, Nutritional, Medications/Rx, Educational, Recreational/Social
== END 2018-07-06 13:34 | disposition home or self-care (01) | DRG 885 ==
LOC: H.ER 06:06 → H.STEP 06:31 → UNDOADMIN 07:01 → H.STEP 07-02 19:51
PROVIDERS: ADMIT Psychiatry & Neurology Psychiatry; ATTEND Psychiatry & Neurology Psychiatry
PROC: GZHZZZZ Group Psychotherapy (ICD-10-PCS; principal; 2018-06-26)
PROC: GZ58ZZZ Individual Psychotherapy, Cognitive-Behavioral (ICD-10-PCS; 2018-06-26)
PROC: 3E02340 Introduction of Influenza Vaccine into Muscle, Percutaneous Approach (ICD-10-PCS; 2018-06-26)
PROC: 3E0234Z Introduction of Serum, Toxoid and Vaccine into Muscle, Percutaneous Approach (ICD-10-PCS; 2018-06-26)
DX: F33.2 Major depressive disorder, recurrent severe without psychotic features (principal); R45.851 Suicidal ideations; E03.9 Hypothyroidism, unspecified; I10 Essential (primary) hypertension; E11.9 Type 2 diabetes mellitus without complications; E78.5 Hyperlipidemia, unspecified; L50.9 Urticaria, unspecified; F17.210 Nicotine dependence, cigarettes, uncomplicated; Z23 Encounter for immunization; Z79.84 Long term (current) use of oral hypoglycemic drugs